=== PATIENT | male | born 1960 | race Caucasian/White ===

== ENCOUNTER 2021-11-18 20:44 | Emergency (ER) | payer OTHER ==
[~2021-11-18] VITALS: Ht 188 cm; Wt 144.7 kg
[2021-11-18 21:22] LABS: HEMOGLOBIN 15.4 gm/dl (14.0-17.5); RED BLOOD COUNT 5.55 M/UL (4.20-5.50)
[2021-11-18 21:53] LABS: BORDETELLA PARAPERTUSSIS Not Detected (Not Detectd); BORDETELLA PERTUSSIS Not Detected (Not Detectd); CHLAMYDIA PNEUMONIAE Not Detected (Not Detectd); CORONAVIRUS HKU1 Not Detected (Not Detectd); CORONAVIRUS NL63 Not Detected (Not Detectd); CORONAVIRUS OC43 Not Detected (Not Detectd); CORONOAVIRUS 229E Not Detected (Not Detectd); HUMAN METAPNEUMOVIRUS Not Detected (Not Detectd); HUMAN RHINOVIRUS/ENTEROVIRUS Not Detected (Not Detectd); INFLUENZA A Not Detected (Not Detectd); INFLUENZA B Not Detected (Not Detectd); MYCOPLASMA PNEUMONIAE Not Detected (Not Detectd); PARAINFLUENZA VIRUS 1 Not Detected (Not Detectd); PARAINFLUENZA VIRUS 2 Not Detected (Not Detectd); PARAINFLUENZA VIRUS 3 Not Detected (Not Detectd); PARAINFLUENZA VIRUS 4 Not Detected (Not Detectd); RESPIRATORY SYNCYTIAL VIRUS Not Detected (Not Detectd)
[2021-11-18 21:55] LABS: BUN/CREATININE RATIO 32 (0-10)
[2021-11-18 22:48] LABS: SARS-CoV-2 DETECTED (Not Detectd)
== END 2021-11-19 19:19 | disposition short-term general hospital (02) ==
LOC: ER1 20:44
PROVIDERS: Preventive Medicine Occupational Medicine
DX: U07.1 COVID-19 (principal); J12.82 Pneumonia due to coronavirus disease 2019; J69.0 Pneumonitis due to inhalation of food and vomit; J96.01 Acute respiratory failure with hypoxia; I63.9 Cerebral infarction, unspecified; E11.9 Type 2 diabetes mellitus without complications; E66.01 Morbid (severe) obesity due to excess calories; F17.200 Nicotine dependence, unspecified, uncomplicated; R79.89 Other specified abnormal findings of blood chemistry; M62.82 Rhabdomyolysis; I10 Essential (primary) hypertension
CPT/HCPCS: 36600; 51702; 70450; 71045; 80053; 80061; 80307; 81001; 82009; 82140; 82272; 82550; 82553; 82805; 83605; 83690; 83874; 83880; 84484; 85025; 85610; 85652; 86140; 87040; 87086; 87633; 93005; 93880; 94640; 94664; 94760; 96374; 96375; 97162; 97167; 99285; G0480; J0248; J0696; J1335; J7030